=== PATIENT | female | born 2000 | race Caucasian/White ===

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

== ENCOUNTER 2019-04-14 11:10 | Emergency (ER) | payer OTHER ==
[~2019-04-14] VITALS: Ht 162.6 cm; Wt 95.6 kg
[~2019-04-14 11:10] MED LIST: BACT800T5 PO; LEVOTAB18
[2019-04-14 11:51] LABS: BASO % 0.6 % (0.0-1.0); EOS # 0.5 10^3/uL (0.0-0.5); EOS % 8.3 % (0.0-3.0); HEMATOCRIT 42.4 % (36.0-47.0); HEMOGLOBIN 14.5 g/dl (12.0-15.5); LYMPH % 32.7 % (24.0-44.0); MEAN CORPUSCULAR HGB CONC 34.2 g/dl (32.0-36.5); MEAN CORPUSCULAR VOLUME 90.8 fl (80.0-96.0); MONO # 0.4 10^3/uL (0.0-0.8); NEUTROPHILS # 3.2 10^3/uL (1.5-8.5); NEUTROPHILS % 51.9 % (36.0-66.0); PLATELET COUNT, AUTOMATED 228 10^3/uL (150-450); RED BLOOD COUNT 4.67 10^6/uL (4.00-5.40); WHITE BLOOD COUNT 6.2 10^3/uL (4.0-10.0)
[2019-04-14 12:17] LABS: BLOOD UREA NITROGEN 11 MG/DL (7-18); CALCIUM LEVEL 9.1 MG/DL (8.5-10.1); CARBON DIOXIDE LEVEL 28 MEQ/L (21-32); CHLORIDE LEVEL 108 MEQ/L (98-107); CREATININE FOR GFR 0.75 MG/DL (0.55-1.30); GLUCOSE, FASTING 93 MG/DL (70-100); POTASSIUM SERUM 3.8 MEQ/L (3.5-5.1); SODIUM LEVEL 139 MEQ/L (136-145)
[2019-04-14 12:41] LABS: FREE T4 0.87 NG/DL (0.78-1.33)
--- NOTE | 2019-04-14 13:19 | REP ---
Clinical: Abnormal uterine bleeding. Technique: Transabdominal pelvic ultrasound followed by transvaginal examination for better evaluation of the endometrium and adnexa with color Doppler evaluation of the ovaries. Findings: Heterogeneous anteverted uterus measures 8.2 x 3.0 x 5.1 cm. Hemorrhagic debris noted in the endocervical canal. The endometrial thickness excluding debris measures 6 mm. The bilateral ovaries are normal in appearance and vascularity without torsion. Right ovary measures 4.0 x 2.6 x 2.6 cm (RI 0.61). Left ovary measures 3.2 x 2.5 x 2.7 cm (RI 0.52). No pelvic fluid or adnexal mass lesion. Impression: Hemorrhagic debris in the endocervical canal. Otherwise normal examination. Electronically Signed by Puneet Belcher MD 04/14/2019 01:11 P
[2019-04-14 14:06] VITALS: BP 140/71
== END 2019-04-14 14:25 | disposition home or self-care (01) ==
LOC: M ED 11:10
DX: N93.9 Abnormal uterine and vaginal bleeding, unspecified (principal); Z79.3 Long term (current) use of hormonal contraceptives; Z88.1 Allergy status to other antibiotic agents; Z88.8 Allergy status to other drugs, medicaments and biological substances

== ENCOUNTER → 2019-04-29 | Outpatient (REF) | payer OTHER ==
[2019-04-29 15:42] LABS: CHLAMYDIA DNA AMPLIFICATION NEGATIVE (NEGATIVE); GC DNA AMPLIFICATION NEGATIVE (NEGATIVE)
== END ==
LOC: M SFHCWAGY 13:12
PROVIDERS: ATTEND Nurse Practitioner Women's Health
DX: N92.1 Excessive and frequent menstruation with irregular cycle (principal)

== ENCOUNTER → 2019-05-09 | Outpatient (REF) | payer OTHER ==
[2019-05-09 13:02] LABS: INFLUENZA A AMPLIFICATION NEGATIVE (NEGATIVE); INFLUENZA B AMPLIFICATION NEGATIVE (NEGATIVE)
== END ==
LOC: M LAB REF 12:09
PROVIDERS: ATTEND Physician Assistant Medical
DX: J11.1 Influenza due to unidentified influenza virus with other respiratory manifestations (principal)

== ENCOUNTER → 2019-06-09 | Outpatient (REF) | payer OTHER | LOC: M LAB REF 16:05 | PROVIDERS: ATTEND Physician Assistant | DX: R05 Cough (principal) | CPT/HCPCS: 87486; 87581; 87633; 87798; U0002 ==

== ENCOUNTER → 2019-08-07 | Outpatient (REF) | payer OTHER | LOC: M LAB REF 10:23 | PROVIDERS: ATTEND Physician Assistant | DX: L03.116 Cellulitis of left lower limb (principal) ==

== ENCOUNTER → 2020-04-07 | Outpatient (REF) | payer OTHER | LOC: M LAB REF 16:38 | PROVIDERS: ATTEND Physician Assistant | DX: Z20.828 Contact with and (suspected) exposure to other viral communicable diseases (principal) ==

== ENCOUNTER → 2020-07-28 | Outpatient (REF) | payer OTHER ==
[2020-07-28 14:18] LABS: FREE T4 0.83 NG/DL (0.76-1.46); THYROID STIMULATING HORMONE 2.13 uIU/ML (0.358-3.740)
== END ==
LOC: M SFHCPLAZ 10:44
PROVIDERS: ATTEND Nurse Practitioner Family
DX: F41.1 Generalized anxiety disorder (principal)

== ENCOUNTER 2020-12-20 13:02 | Emergency (ER) | payer OTHER ==
[~2020-12-20] VITALS: Ht 162.6 cm; Wt 103.7 kg
--- OUTSIDE RECORDS SUMMARY | 2020-12-20 13:07 | CCD ---
Author Author [facility] Organization [facility] Address Unknown Phone Unavailable Support Name Relationship Address [place] [address] Unavailable CRACKER Next Of Kin [address] [place] [address] VIOLA ELLIOTT Next Of Kin [address] [place] [address] UE Next Of Kin Unknown Unavailable VIOLA ELLIOTT Next Of Kin [address] [place] [address] VIOLA ELLIOTT [facility] [address] [place] [address] Unavailable Re-disclosure Warning The records that you are about to access may contain information from federally-assisted alcohol or drug abuse programs. If such information is present, then the following federally mandated warning applies: This information has been disclosed to you from records protected by federal confidentiality rules (42 CFR part 2). The federal rules prohibit you from making any further disclosure of this information unless further disclosure is expressly permitted by the written consent of the person to whom it pertains or as otherwise permitted by 42 CFR part 2. A general authorization for the release of medical or other information is NOT sufficient for this purpose. The Federal rules restrict any use of the information to criminally investigate or prosecute any alcohol or drug abuse patient.The records that you are about to access may contain highly sensitive health information, the redisclosure of which is protected by Article 27-F of the [facility] Public Health law. If you continue you may have access to information: Regarding HIV / AIDS; Provided by facilities licensed or operated by the [facility] Office of Mental Health; or Provided by the [facility] Office for People With Developmental Disabilities. If such information is present, then the following [facility] mandated warning applies: This information has been disclosed to you from confidential records which are protected by state law. State law prohibits you from making any further disclosure of this information without the specific written consent of the person to whom it pertains, or as otherwise permitted by law. Any unauthorized further disclosure in violation of state law may result in a fine or halfway sentence or both. A general authorization for the release of medical or other information is NOT sufficient authorization for further disc losure. Family History Family Member Name Family Member Gender Family Member Status Date o f Status Description Data Source(s) Unknown Unknown Problem MEDENT ([facility]) Unknown Unknown Problem [facility] Unknown Male Problem MEDENT ([facility] ) Encounters Encounter Providers Location Date Indications Data Source(s ) [place] [address] [facility] [address] 08/09/2020 12:00:00 AM EDT eCW1 ([facility]) [place] [address] [facility] [address] 07/28/2020 12:00:00 AM EDT eCW1 ([facility]) Immunizations Vaccine Date Status Description Data Source(s) COVID-19 VACC, MRNA(PFIZER)/PF 11/16/2020 12:00:00 AM EDT completed [facility] COVID-19 VACCINE Pfizer 11/16/2020 12:00:00 AM EDT completed [facility] Vaccine Series Complete: YESThis Data wa s Submitted to [facility] [employer]. COVID-19 VACC, MRNA(PFIZER)/PF 10/27/2020 12:00:00 AM EDT completed [facility] COVID-19 VACCINE Pfizer 10/26/2020 12:00:00 AM EDT completed [facility] Vaccine Series Complete: NOThis Data was Submitted to [facility] [employer]. INFLUENZA VIRUS VACCINE QUADRIVALENT 2019- (6 MOS AN D UP) 12/29/2019 12:00:00 AM EST completed [facility] Medications Medication Brand Name Start Date Product Form Dose Route Admi nistrative Instructions Pharmacy Instructions Status Indications Reaction Description Data Source(s) 300 mg 11/16/2020 12:00:00 AM EDT capsule 20 TAKE 1 CAPSULE EVERY 12 HOURS FOR 10 DAYS TAKE 1 CAPSULE EVERY 12 HOURS FOR 10 DAYS SOLD: 11/16/2020 [facility] 90 mcg/actuation 07/28/2020 12:00:00 AM EDT HFA aerosol inha ler 18 INHALE ONE PUFF BY MOUTH EVERY 4 HOURS NEEDED INHALE ONE PUFF BY MOUTH EVERY 4 HOURS NEEDED SOLD: 07/28/2020 [facility] buspirone hydrochloride 5 MG Oral Tablet BusPIRone HCl 5 MG BusPIRone HCl 5 MG 07/28/2020 12:00:00 AM EDT 1.0 {tablet} active BusPIRone HCl 5 MG eCW1 ([facility]) buspirone hydrochloride 5 MG Oral Tablet BUSPIRONE HCL 07/28/2020 12:00:00 AM EDT tablet 60 TAKE ONE TABLET BY MOUTH TWI CE A DAY TAKE ONE TABLET BY MOUTH TWICE A DAY SOLD: 07/28/2020 [facility] 200 ACTUAT Albuterol 0.09 MG/ACTUAT Mete red Dose Inhaler [Ventolin] Ventolin HFA 108 (90 Base) MCG/ACT Ventolin HFA 108 (90 Base) MCG/ACT 07/28/2020 12:00:00 AM EDT 1.0 {puff_as_needed} active Travis tolin HFA 108 (90 Base) MCG/ACT eCW1 ([facility]) 200 ACTUAT Albuterol 0.09 MG/ACTUAT Mete red Dose Inhaler [Ventolin] Ventolin HFA 108 (90 Base) MCG/ACT Ventolin HFA 108 (90 Base) MCG/ACT 07/28/2020 12:00:00 AM EDT 1.0 {puff_as_needed} active Travis tolin HFA 108 (90 Base) MCG/ACT eCW1 ([facility]) Insurance Providers Payer name Policy type / Coverage type Policy ID Covered democrat ID Covered democrat's relationship to llamas Policy [place] Plan Information BC/BS o Blue Health Maintenance Organization (O) [id number] Family Dependent [id number] Medicaid Medicaid [id number] Family Dependent [id number] [facility] Health Maintenance Organization (HMO) V [id number] Family Dependent [id number] o Blue Options Commercial [id number] Family Dependent [id number] [employer] COMMUNITY PLAN MCDO [id number] SP [id number] [employer] COMMUNITY PLAN MCDO [id number] SP [id number] Aig Commercial ~~12/12/16 [id number] Self ~~12/12/16 [facility] Community Plan Medigap Part B [id number] Self [id number] [facility] Community Plan Commercial [id number] [id number] [facility] Health Maintenance Organization (O) [id number] [facility] Health Maintenance Organization (O) [id number] [facility] Health Maintenance Organization (HMO) [id number] [facility] Health Maintenance Organization (HMO) [id number] [facility] Health Maintenance Organization (O) [id number] [facility] Health Maintenance Organization (HMO) [id number] Self [id number] [facility] Health Maintenance Organization (O) [id number] Self [id number] [facility] Health Maintenance Organization (O) [id number] Self [id number] [facility] Health Maintenance Organization (O) [id number] Self [facility] [id number] S [id number] [facility] COMM PLAN [id number] 18 [id number] BLUE [place] PLAN [id number] SP [id number] HMO BLUE [id number] SP [id number] [facility] COMMUNITY PLAN MCDO [id number] SP [id number] [facility](MCAID) O [id number] S [id number] ANSI-Medicaid [id number] ANSI-Medicaid [id number] ANSI-Medicaid [id number] [facility] [id number] [facility] Health Maintenance Organization ([facility]) [id number] Self [id number] [facility] Health Maintenance Organization (O) [id number] Family Dependent [id number] Problems, Conditions, and Diagnoses Code Display Name Description Problem Type Effective Dates Data Source(s) F41.1 [id number] CHRISTIE (generalized anxiety disorder) Proble m 07/28/2020 12:00:00 AM EDT eCW1 ([facility]) E66.9 [id number] Obesity (BMI 30-39.9) Problem 07/28/2020 12: 00:00 AM EDT eCW1 ([facility]) J45.20 Mild intermittent asthma Asthma, mild intermittent Pro blem 07/28/2020 12:00:00 AM EDT eCW1 ([facility]) Surgeries/Procedures Procedure Description Date Indications Data Source(s) Medication: Tuberculin Purified Protein 0.1mL Intradermal (P PD) 07/28/2020 12:00:00 AM EDT eCW1 ([facility]) Results ID Date Data Source [id number] 11/16/2020 12:00:00 AM EDT [facility] Name Value Range Interpretation Code Description Data Basia rce(s) Supporting Document(s) SARS-CoV2 Rapid Antigen Negative [facility] This lab was ordered by [facility] and reported by [facility]. ID Date Data Source [id number] 09/09/2020 12:00:00 AM EDT [facility] Name Value Range Interpretation Code Description Data Basia rce(s) Supporting Document(s) SARS coronavirus 2 RNA Not Detected [facility] This lab was ordered by [facility] and rep orted by [facility]. ID Date Data Source FREE T4 & TSH PANEL 07/28/2020 12:00:00 AM EDT eCW1 ([facility]) Name Value Range Interpretation Code Description Data Basia rce(s) Supporting Document(s) 2.130 0.358-3.740 THYROID STIMULATING HORM ONE eCW1 ([facility]) 0.83 0.76-1.46 FREE T4 eCW1 ([facility]) ID Date Data Source [id number] 06/16/2020 12:00:00 AM EDT [facility] Name Value Range Interpretation Code Description Data Basia rce(s) Supporting Document(s) SARS coronavirus 2 RNA Not Detected [facility] This lab was ordered by [facility] and rep orted by [facility]. ID Date Data Source [id number] 04/20/2020 12:00:00 AM EST [facility] Name Value Range Interpretation Code Description Data Basia rce(s) Supporting Document(s) SARS coronavirus 2 RNA Not Detected [facility] This lab was ordered by [facility] and rep orted by [facility]. ID Date Data Source [id number] 04/07/2020 03:00:00 PM EST [facility] Name Value Range Interpretation Code Description Data Basia rce(s) Supporting Document(s) SARS coronavirus 2 RNA Not Detected [facility] This lab was ordered by [facility] and reported by [facility]. ID Date Data Source [id number] 03/27/2020 10:00:00 AM EST [facility] Name Value Range Interpretation Code Description Data Basia rce(s) Supporting Document(s) SARS coronavirus 2 RNA Not Detected [facility] This lab was ordered by [facility] and rep orted by [facility]. ID Date Data Source [id number] 12/30/2019 02:54:00 PM EST [facility] Name Value Range Interpretation Code Description Data Basia rce(s) Supporting Document(s) SARS coronavirus 2 RNA [facility] This lab was ordered by [facility] and rep orted by [facility]. ID Date Data Source [id number] 11/17/2019 12:00:00 AM EDT [facility] Name Value Range Interpretation Code Description Data Basia rce(s) Supporting Document(s) SARS coronavirus 2 RNA [facility] This lab was ordered by [facility] and rep orted by [facility]. Procedure Social History Code Duration Value Status Description Data Source(s ) Smoking 08/09/2020 12:00:00 AM EDT Never Smoker completed Never S moker eCW1 ([facility]) Smoking 07/28/2020 12:00:00 AM EDT Never Smoker completed Never S moker eCW1 ([facility]) Vital Signs ID Date Data Source UNK Name Value Range Interpretation Code Description Data Source(s) Body weight 229 [lb_av] 229 [lb_av] eCW1 ([facility]) Body height 65 [in_i] 65 [in_i] eCW1 ([facility]) Body mass index (BMI) [Ratio] 38.10 kg/m2 38.10 kg/m2 eCW1 ([facility]) Heart rate 105 /min 105 /min eCW1 ([facility]) Respiratory rate 18 /min 18 /min eCW1 ([facility]) Body temperature 98 [degF] 98 [degF] eCW1 ([facility]) Systolic blood pressure 110 mm[Hg] 110 mm[Hg] e CW1 ([facility]) Diastolic blood pressure 70 mm[Hg] 70 mm[Hg] eCW1 ([facility]) Body weight 230 [lb_av] 230 [lb_av] eCW1 ([facility]) Body height 65 [in_i] 65 [in_i] eCW1 ([facility]) Body mass index (BMI) [Ratio] 38.27 kg/m2 38.27 kg/m2 eCW1 ([facility]) Heart rate 104 /min 104 /min eCW1 ([facility]) Respiratory rate 18 /min 18 /min eCW1 ([facility]) Body temperature 97.7 [degF] 97.7 [degF] eCW1 ( [facility]) Systolic blood pressure 108 mm[Hg] 108 mm[Hg] e CW1 ([facility]) Diastolic blood pressure 64 mm[Hg] 64 mm[Hg] eCW1 ([facility]) Patient Treatment Plan of Care Planned Activity Planned Date Details Description Data Source (s) buspirone hydrochloride 5 MG Oral Tablet 07/28/2020 12:00:00 AM EDT eCW1 ([facility]) 200 ACTUAT Albuterol 0.09 MG/ACTUAT Metered Dose Inhal er [Ventolin] 07/28/2020 12:00:00 AM EDT eCW1 ([facility])
[2020-12-20] MEDS ORDERED: ALBU8.5H (13:27)
--- OUTSIDE RECORDS SUMMARY | 2020-12-20 15:33 | CCD ---
Author Author [facility] Organization [facility] Address Unknown Phone Unavailable Support Name Relationship Address [place] [address] Unavailable CRACKER Next Of Kin [address] [place] [address] VIOLA ELLIOTT Next Of Kin [address] [place] [address] UE Next Of Kin Unknown Unavailable VIOLA ELLIOTT Next Of Kin [address] [place] [address] VIOLA ELLIOTT [facility] [address] [place] [address] Unavailable Re-disclosure Warning The records that you [...] is protected by Article 27-F of the [facility] Public Health law. If you continue you may have access to information: Regarding HIV / AIDS; Provided by facilities licensed or operated by the [facility] Office of Mental Health; or Provided by the [facility] Office for People With Developmental Disabilities. If such information is present, then the following [facility] mandated warning applies: This information [...] law may result in a fine or penitentiary sentence or both. A general authorization for the release of medical or other information is NOT sufficient authorization for further disc losure. Family History Family Member Name Family Member Gender Family Member Status Date o f Status Description Data Source(s) Unknown Unknown Problem MEDENT ([facility]) Unknown Unknown Problem [facility] ([facility]) Unknown Male Problem MEDENT ([facility] ) Encounters Encounter Providers Location Date Indications Data Source(s ) [place] [address] [facility] [address] 08/09/2020 12:00:00 AM EDT eCW1 ([facility]) [place] [address] [facility] [address] 07/28/2020 12:00:00 AM EDT eCW1 ([facility]) Immunizations Vaccine Date Status Description Data Source(s) COVID-19 VACC, MRNA(PFIZER)/PF 11/16/2020 12:00:00 AM EDT completed [facility] COVID-19 VACCINE Pfizer 11/16/2020 12:00:00 AM EDT completed [facility] Vaccine Series Complete: YESThis Data wa s Submitted to [facility] Via [employer]. COVID-19 VACC, MRNA(PFIZER)/PF 10/27/2020 12:00:00 AM EDT completed [facility] COVID-19 VACCINE Pfizer 10/26/2020 12:00:00 AM EDT completed [facility] Vaccine Series Complete: NOThis Data was Submitted to [facility] Via [employer]. INFLUENZA VIRUS VACCINE QUADRIVALENT 2019- (6 MOS [...] {tablet} active BusPIRone HCl 5 MG eCW1 ([facility]) buspirone hydrochloride 5 MG Oral Tablet BUSPIRONE [...] tolin HFA 108 (90 Base) MCG/ACT eCW1 ([facility]) 200 ACTUAT Albuterol 0.09 MG/ACTUAT Mete red Dose Inhaler [Ventolin] Ventolin HFA 108 (90 Base) MCG/ACT Ventolin HFA 108 (90 Base) MCG/ACT 07/28/2020 12:00:00 AM EDT 1.0 {puff_as_needed} active Travis tolin HFA 108 (90 Base) MCG/ACT eCW1 ([facility]) Insurance Providers Payer name Policy type / Coverage type Policy ID Covered green party ID Covered green party's relationship to llamas Policy [place] Plan Information BC/BS o Blue Health Maintenance Organization (O) [id number] Family Dependent [id number] Medicaid Medicaid [id number] Family Dependent [id number] [facility] Child HLTH Plus Health Maintenance Organization (HMO) V [id number] Family Dependent [id number] o Blue Options Commercial [id number] Family Dependent [id number] [employer] COMMUNITY PLAN MCDO [id number] SP [id number] [employer] COMMUNITY PLAN MCDO [id number] SP [id number] Aig Commercial ~~12/12/16 [id number] Self ~~12/12/16 [facility] Community Plan Medigap Part B [id number] Self [id number] [facility] Community Plan Commercial [id number] Family Dependent [id number] [facility] Health Maintenance Organization (O) [id number] Self [id number] [facility] Health Maintenance Organization (O) [id number] Self [id number] [facility] Health Maintenance Organization (HMO) [id number] Self [id number] [facility] Health Maintenance Organization (HMO) [id number] Self [id number] [facility] Health Maintenance Organization (O) [id number] Self [id number] [facility] Health Maintenance Organization (HMO) [id number] Self [id number] [facility] Health Maintenance Organization (O) [id number] Self [id number] [facility] Health Maintenance Organization (O) [id number] Self [id number] [facility] Health Maintenance Organization (O) [id number] Self [facility] [id number] S [id number] [facility] COMM PLAN [id number] 18 [id number] BLUE [place] PLAN [id number] SP [id number] HMO BLUE [id number] SP [id number] [facility] COMMUNITY PLAN MCDO [id number] SP [id number] [facility](MCAID) O [id number] S [id number] ANSI-Medicaid [id number] ANSI-Medicaid [id number] ANSI-Medicaid [id number] [facility] [id number] [facility] Health Maintenance Organization [place] [id number] Self [id number] [facility] Health Maintenance Organization (O) [id number] Family Dependent [id number] Problems, Conditions, and Diagnoses Code Display Name Description Problem Type Effective Dates Data Source(s) F41.1 [id number] CHRISTIE (generalized anxiety disorder) Proble m 07/28/2020 12:00:00 AM EDT eCW1 ([facility]) E66.9 [id number] Obesity (BMI 30-39.9) Problem 07/28/2020 12: 00:00 AM EDT eCW1 ([facility]) J45.20 Mild intermittent asthma Asthma, mild intermittent Pro blem 07/28/2020 12:00:00 AM EDT eCW1 ([facility]) Surgeries/Procedures Procedure Description Date Indications Data Source(s) Medication: Tuberculin Purified Protein 0.1mL Intradermal (P PD) 07/28/2020 12:00:00 AM EDT eCW1 ([facility]) Results ID Date Data Source [id number] 11/16/2020 12:00:[facility] Name Value Range Interpretation Code Description Data Basia rce(s) Supporting Document(s) SARS-CoV2 Rapid Antigen Negative [facility] This lab was ordered by [facility] and reported by [facility]. ID Date Data Source [id number] 09/09/2020 12:00:00 AM EDT [facility] Name Value Range Interpretation Code Description Data Basia rce(s) Supporting Document(s) SARS coronavirus 2 RNA Not Detected [facility] This lab was ordered by [facility] and rep orted by [facility]. ID Date Data Source FREE T4 & TSH PANEL 07/28/2020 12:00:00 AM EDT eCW1 ([facility]) Name Value Range Interpretation Code Description Data Basia rce(s) Supporting Document(s) 2.130 0.358-3.740 THYROID STIMULATING HORM ONE eCW1 ([facility]) 0.83 0.76-1.46 FREE T4 eCW1 ([facility]) ID Date Data Source [id number] 06/16/2020 12:00:00 AM EDT [facility] Name Value Range Interpretation Code Description Data Basia rce(s) Supporting Document(s) SARS coronavirus 2 RNA Not Detected [facility] This lab was ordered by [facility] and rep orted by [facility]. ID Date Data Source [id number] 04/20/2020 12:00:00 AM EST [facility] Name Value Range Interpretation Code Description Data Basia rce(s) Supporting Document(s) SARS coronavirus 2 RNA Not Detected [facility] This lab was ordered by [facility] and rep orted by [facility]. ID Date Data Source [id number] 04/07/2020 03:00:00 PM EST [facility] Name Value Range Interpretation Code Description Data Basia rce(s) Supporting Document(s) SARS coronavirus 2 RNA Not Detected [facility] This lab was ordered by [facility] and reported by [facility]. ID Date Data Source [id number] 03/27/2020 10:00:00 AM EST [facility] Name Value Range Interpretation Code Description Data Basia rce(s) Supporting Document(s) SARS coronavirus 2 RNA Not Detected [facility] This lab was ordered by [facility] and rep orted by [facility]. ID Date Data Source [id number] 12/30/2019 02:54:00 PM EST [facility] Name Value Range Interpretation Code Description Data Basia rce(s) Supporting Document(s) SARS coronavirus 2 RNA [facility] This lab was ordered by [facility] and rep orted by [facility]. ID Date Data Source [id number] 11/17/2019 12:00:00 AM EDT [facility] Name Value Range Interpretation Code Description Data Basia rce(s) Supporting Document(s) SARS coronavirus 2 RNA [facility] This lab was ordered by [facility] and rep orted by [facility]. Procedure Social History Code Duration Value Status Description Data Source(s ) Smoking 08/09/2020 12:00:00 AM EDT Never Smoker completed Never S moker eCW1 ([facility]) Smoking 07/28/2020 12:00:00 AM EDT Never Smoker completed Never S moker eCW1 ([facility]) Vital Signs ID Date Data Source UNK Name Value Range Interpretation Code Description Data Source(s) Body weight 229 [lb_av] 229 [lb_av] eCW1 ([facility]) Body height 65 [in_i] 65 [in_i] eCW1 ([facility]) Body mass index (BMI) [Ratio] 38.10 kg/m2 38.10 kg/m2 eCW1 ([facility]) Heart rate 105 /min 105 /min eCW1 ([facility]) Respiratory rate 18 /min 18 /min eCW1 ([facility]) Body temperature 98 [degF] 98 [degF] eCW1 ([facility]) Systolic blood pressure 110 mm[Hg] 110 mm[Hg] e CW1 ([facility]) Diastolic blood pressure 70 mm[Hg] 70 mm[Hg] eCW1 ([facility]) Body weight 230 [lb_av] 230 [lb_av] eCW1 ([facility]) Body height 65 [in_i] 65 [in_i] eCW1 ([facility]) Body mass index (BMI) [Ratio] 38.27 kg/m2 38.27 kg/m2 eCW1 ([facility]) Heart rate 104 /min 104 /min eCW1 ([facility]) Respiratory rate 18 /min 18 /min eCW1 ([facility]) Body temperature 97.7 [degF] 97.7 [degF] eCW1 ( [facility]) Systolic blood pressure 108 mm[Hg] 108 mm[Hg] e CW1 ([facility]) Diastolic blood pressure 64 mm[Hg] 64 mm[Hg] eCW1 ([facility]) Patient Treatment Plan of Care Planned Activity Planned Date Details Description Data Source (s) buspirone hydrochloride 5 MG Oral Tablet 07/28/2020 12:00:00 AM EDT eCW1 ([facility]) 200 ACTUAT Albuterol 0.09 MG/ACTUAT Metered Dose Inhal er [Ventolin] 07/28/2020 12:00:00 AM EDT eCW1 ([facility])
[2020-12-20] MEDS ORDERED: VENTAER INH (16:07)
[2020-12-20] MEDS ORDERED: PRED10TA2 PO (16:08)
[2020-12-20 16:22] VITALS: BP 127/82
--- NOTE | 2020-12-20 18:31 | ECGEPIP ---
[facility] - ED Test Date: 2020-12-20 Pat Name: MEET BELLE Department: Room: - Gender: Female Trucker Hand: RS : 2000 Requested By: Florence Leo Order Number: [id number] Reading MD: Florence Leo Measurements Intervals [place] Rate: 62 P: 36 AR: 136 QRS: -11 QRSD: 102 T: 20 QT: 430 QTc: 436 Interpretive Statements Normal sinus rhythm with sinus arrhythmia irbbb no prior Electronically Signed on 12-20-2020 18:30:36 EDT by Florence Leo
== END 2020-12-20 16:23 | disposition home or self-care (01) ==
LOC: M ED 13:02
DX: J06.9 Acute upper respiratory infection, unspecified (principal); B34.8 Other viral infections of unspecified site; J45.909 Unspecified asthma, uncomplicated; Z88.0 Allergy status to penicillin; Z88.8 Allergy status to other drugs, medicaments and biological substances

== ENCOUNTER → 2023-03-05 | Outpatient (CLI) | payer BC ==
[~2023-03-05] MED LIST changes: +ALBU8.5H; +PRED10TA2 PO; +VENTAER INH
[2023-03-05 11:54] LABS: BASO % 0.6 % (0.0-1.0); EOS # 0.3 10^3/uL (0.0-0.5); EOS % 5.2 % (0.0-3.0); HEMATOCRIT 38.9 % (36.0-47.0); HEMOGLOBIN 13.3 g/dl (12.0-15.5); LYMPH # 1.6 10^3/uL (1.5-5.0); LYMPH % 25.3 % (24.0-44.0); MEAN CORPUSCULAR HEMOGLOBIN 31.4 pg (27.0-33.0); MEAN CORPUSCULAR HGB CONC 34.2 g/dl (32.0-36.5); MONO # 0.4 10^3/uL (0.0-0.8); NEUTROPHILS # 3.9 10^3/uL (1.5-8.5); NEUTROPHILS % 62.6 % (36.0-66.0); PLATELET COUNT, AUTOMATED 237 10^3/uL (150-450); RED BLOOD COUNT 4.23 10^6/uL (4.00-5.40); WHITE BLOOD COUNT 6.2 10^3/uL (4.0-10.0)
[2023-03-05 12:23] LABS: ALBUMIN 4.1 G/DL (3.2-5.2); ALKALINE PHOSPHATASE 51 U/L (46-116); ALT/SGPT 16 U/L (7.0-40); AST/SGOT 10 U/L (<34); BILIRUBIN,TOTAL 0.5 MG/DL (0.3-1.2); BLOOD UREA NITROGEN 11 MG/DL (9-23); CARBON DIOXIDE LEVEL 27 MMOL/L (20-31); CHLORIDE LEVEL 109 MMOL/L (98-107); CHOLESTEROL LEVEL 164 MG/DL (<200); CHOLESTEROL RISK RATIO 3.91 (<5); CREATININE FOR GFR 0.69 MG/DL (0.55-1.30); GLOMERULAR FILTRATION RATE > 60.0 (>60); GLUCOSE, FASTING 79 MG/DL (60-100); HDL CHOLESTEROL 41.9 MG/DL (>40); LDL CHOLESTEROL 91.1 MG/DL (<100); NON-HDL-C 122.1 MG/DL; POTASSIUM SERUM 4.5 MMOL/L (3.5-5.1); SODIUM LEVEL 142 MMOL/L (136-145); TOTAL PROTEIN 6.7 G/DL (5.7-8.2); TRIGLYCERIDES LEVEL 155 MG/DL (<150)
[2023-03-05 12:24] LABS: FREE T4 0.94 NG/DL (0.89-1.76); THYROID STIMULATING HORMONE 1.708 uIU/ML (0.55-4.78)
== END ==
LOC: M PLALAB 08:31
PROVIDERS: ATTEND Nurse Practitioner Family
DX: Z13.220 Encounter for screening for lipoid disorders (principal); R53.83 Other fatigue

== ENCOUNTER → 2023-03-07 | Outpatient (REF) | payer BC | LOC: M SFHCWAGY 15:19 | PROVIDERS: ATTEND Nurse Practitioner Family | DX: Z12.4 Encounter for screening for malignant neoplasm of cervix (principal) ==

== ENCOUNTER 2024-01-23 04:34 | Emergency (ER) | payer BC ==
[~2024-01-23] VITALS: Ht 162.6 cm; Wt 82.2 kg
[2024-01-23 05:13] LABS: BASO % 0.7 % (0.0-1.0); EOS # 0.3 10^3/uL (0.0-0.5); EOS % 5.8 % (0.0-3.0); HEMATOCRIT 40.2 % (36.0-47.0); HEMOGLOBIN 14.4 g/dl (12.0-15.5); LYMPH # 1.9 10^3/uL (1.5-5.0); LYMPH % 35.2 % (24.0-44.0); MEAN CORPUSCULAR HEMOGLOBIN 31.4 pg (27.0-33.0); MEAN CORPUSCULAR HGB CONC 35.8 g/dl (32.0-36.5); MEAN CORPUSCULAR VOLUME 87.8 fl (80.0-96.0); MONO # 0.4 10^3/uL (0.0-0.8); MONO % 6.5 % (2.0-8.0); NEUTROPHILS # 2.8 10^3/uL (1.5-8.5); NEUTROPHILS % 51.6 % (36.0-66.0); PLATELET COUNT, AUTOMATED 210 10^3/uL (150-450); RED BLOOD COUNT 4.58 10^6/uL (4.00-5.40); WHITE BLOOD COUNT 5.4 10^3/uL (4.0-10.0)
[2024-01-23 05:39] LABS: LIPASE 53 U/L (12-53)
[2024-01-23 05:41] LABS: HCG, SERUM QUALITATIVE NEGATIVE (NEGATIVE)
[2024-01-23 05:42] LABS: ALBUMIN 3.8 G/DL (3.2-5.2); ALKALINE PHOSPHATASE 45 U/L (35-104); ALT/SGPT 53 U/L (7.0-40); AST/SGOT 22 U/L (<34); BILIRUBIN,DIRECT 0.2 MG/DL (<0.4); BILIRUBIN,TOTAL 0.5 MG/DL (0.3-1.2); BLOOD UREA NITROGEN 13 MG/DL (9-23); CALCIUM LEVEL 9.3 MG/DL (8.5-10.1); CARBON DIOXIDE LEVEL 24 MMOL/L (20-31); CHLORIDE LEVEL 107 MMOL/L (98-107); CREATININE FOR GFR 0.76 MG/DL (0.55-1.30); GLOMERULAR FILTRATION RATE > 60.0 (>60); GLUCOSE, FASTING 92 MG/DL (60-100); POTASSIUM SERUM 3.1 MMOL/L (3.5-5.1); SODIUM LEVEL 140 MMOL/L (136-145); TOTAL PROTEIN 6.9 G/DL (5.7-8.2)
[2024-01-23 06:20] LABS: Trichomonas vaginalis (AMP) NOT DETECTED (NEGATIVE)
[2024-01-23] MEDS ORDERED: ISOVUE-370 76% 100ML VIAL As Ordered ONE (06:40)
[2024-01-23 06:44] LABS: GC DNA AMPLIFICATION NEGATIVE (NEGATIVE)
[2024-01-23] MEDS: ONDANSETRON 4MG 2ML VIAL IV ONE (06:59)
[2024-01-23] MEDS: PANTOPRAZOLE 40MG VIAL IV ONE (06:59)
[2024-01-23 09:00] VITALS: BP 108/67; TEMP 98.6; O2SAT 98
[2024-01-23] MEDS ORDERED: SUCR1SS PO (09:05)
[2024-01-23] MEDS ORDERED: PROT1TAB2 PO (09:05)
[2024-01-23] MEDS ORDERED: REGL10TA6 PO (09:06)
[2024-01-23] MEDS ORDERED: ONDA-282 PO (09:06)
== END 2024-01-23 09:18 | disposition home or self-care (01) ==
LOC: M ED 04:34
DX: R10.9 Unspecified abdominal pain (principal); R11.2 Nausea with vomiting, unspecified; J45.909 Unspecified asthma, uncomplicated; Z88.1 Allergy status to other antibiotic agents; Z79.51 Long term (current) use of inhaled steroids; Z79.52 Long term (current) use of systemic steroids; Z79.899 Other long term (current) drug therapy
CPT/HCPCS: 74177; 80048; 80076; 81001; 83690; 84703; 85025; 87661; 87810; 87850; 96374; 99284; J2405; J2470; Q9967

== ENCOUNTER → 2024-03-07 | Outpatient (CLI) | payer BC ==
[~2024-03-07] MED LIST changes: +ONDA-282 PO; +PROT1TAB2 PO; +REGL10TA6 PO; +SUCR1SS PO
[2024-03-07 11:59] LABS: BASO % 0.8 % (0.0-1.0); EOS # 0.3 10^3/uL (0.0-0.5); HEMATOCRIT 42.2 % (36.0-47.0); HEMOGLOBIN 14.4 g/dl (12.0-15.5); LYMPH # 1.6 10^3/uL (1.5-5.0); LYMPH % 32.4 % (24.0-44.0); MEAN CORPUSCULAR HEMOGLOBIN 30.8 pg (27.0-33.0); MEAN CORPUSCULAR HGB CONC 34.1 g/dl (32.0-36.5); MEAN CORPUSCULAR VOLUME 90.4 fl (80.0-96.0); MONO # 0.4 10^3/uL (0.0-0.8); NEUTROPHILS # 2.6 10^3/uL (1.5-8.5); NEUTROPHILS % 52.6 % (36.0-66.0); PLATELET COUNT, AUTOMATED 236 10^3/uL (150-450); RED BLOOD COUNT 4.67 10^6/uL (4.00-5.40)
[2024-03-07 12:29] LABS: ALBUMIN 4.3 G/DL (3.2-5.2); ALKALINE PHOSPHATASE 48 U/L (35-104); ALT/SGPT 17 U/L (7.0-40); AST/SGOT 10 U/L (<34); BILIRUBIN,TOTAL 0.5 MG/DL (0.3-1.2); BLOOD UREA NITROGEN 13 MG/DL (9-23); CALCIUM LEVEL 9.5 MG/DL (8.5-10.1); CARBON DIOXIDE LEVEL 28 MMOL/L (20-31); CHLORIDE LEVEL 108 MMOL/L (98-107); CHOLESTEROL LEVEL 197 MG/DL (<200); CHOLESTEROL RISK RATIO 4.51 (<5); CREATININE FOR GFR 0.78 MG/DL (0.55-1.30); GLOMERULAR FILTRATION RATE > 60.0 (>60); GLUCOSE, FASTING 91 MG/DL (60-100); HDL CHOLESTEROL 43.6 MG/DL (>40); LDL CHOLESTEROL 139.8 MG/DL (<100); NON-HDL-C 153.4 MG/DL; POTASSIUM SERUM 4.1 MMOL/L (3.5-5.1); SODIUM LEVEL 140 MMOL/L (136-145); THYROID STIMULATING HORMONE 1.391 uIU/ML (0.55-4.78); TOTAL PROTEIN 7.3 G/DL (5.7-8.2); TRIGLYCERIDES LEVEL 68 MG/DL (<150)
== END ==
LOC: M PLALAB 08:23
PROVIDERS: ATTEND Nurse Practitioner Family
DX: Z00.00 Encounter for general adult medical examination without abnormal findings (principal); Z13.220 Encounter for screening for lipoid disorders; F41.1 Generalized anxiety disorder

== ENCOUNTER → 2024-11-13 | Outpatient (CLI) | payer BC | LOC: M WHC 06:33 | PROVIDERS: ATTEND Nurse Practitioner Family | DX: R10.2 Pelvic and perineal pain (principal) ==